=== PATIENT | female | born 1995 | race Caucasian/White ===

== ENCOUNTER 2022-07-15 07:01 | Outpatient (CLI) | payer OTHER ==
--- NOTE | 2022-07-15 08:32 | Ultrasound Report ---
PROCEDURE: Pelvic Limited or F/U INDICATIONS: LEFT LOWER ABD/SUPRAPUBIC SWELLING TECHNIQUE: Real-time transabdominal scanning was performed in the left groin at the area of interest COMPARISON: None FINDINGS: Fat-containing fully reducible inguinal hernia with defect size of about 1.1 cm. IMPRESSION: Fat-containing left inguinal hernia. Reviewed by: Jeremiah Healy MD on 07/15/2022 8:31 AM PST Approved by: Jeremiah Healy MD on 07/15/2022 8:31 AM PST Station ID: [id number]
== END 2022-07-15 07:02 | disposition home or self-care (01) ==
LOC: DI 07:01
PROVIDERS: ATTEND Registered Nurse
DX: K40.90 Unilateral inguinal hernia, without obstruction or gangrene, not specified as recurrent (principal)